=== PATIENT | male | born 1990 | race African-American/Black ===

== ENCOUNTER 2016-12-22 06:56 | Emergency (ER) | payer MEDICARE, OTHER ==
[~2016-12-22] VITALS: Ht 167.6 cm; Wt 73.9 kg
[2016-12-22 07:07] VITALS: BP 128/81
[2016-12-22] MEDS ORDERED: OFLO5DRO4 OS (07:25)
--- NOTE | 2016-12-22 07:25 | PHYS DOC ---
Past Medical History Past Medical History: Other Additional Past Medical Histor: crohn's disease Past Surgical History: No Surgical History Alcohol Use: None Drug Use: None Adult General Chief Complaint Chief Complaint: EYE PROBLEMS HPI HPI Patient is a 26 year old male presents to the emergency department with swelling to left eye that started at 0300 this morning. Patient states he had yellow drainage and discharge from the eye. Patient denies fever, chills, nausea or vomiting, denies URI symptoms. He denies the use of contact lens. He denies difficulty of vision. Review of Systems Review of Systems Constitutional: Denies fever or chills [] Eyes: Denies change in visual acuity, redness, or eye pain. C/o left eye swelling and drainage HENT: Denies nasal congestion or sore throat [] Respiratory: Denies cough or shortness of breath [] Cardiovascular: No additional information not addressed in HPI [] GI: Denies abdominal pain, nausea, vomiting, bloody stools or diarrhea [] : Denies dysuria or hematuria [] Musculoskeletal: Denies back pain or joint pain [] Integument: Denies rash or skin lesions [] Neurologic: Denies headache, focal weakness or sensory changes [] Endocrine: Denies polyuria or polydipsia [] Allergies Allergies Allergies Coded Allergies Type Severity Reaction Last Updated Verified No Known Drug Allergies 01/13/14 No Physical Exam Physical Exam Constitutional: Well developed, well nourished, no acute distress, non-toxic appearance. [] HENT: Normocephalic, atraumatic, bilateral external ears normal, oropharynx moist, no oral exudates, nose normal. Right TM normal. Unable to visualize left TM. Eyes: PERRLA, EOMI, conjunctiva normal, yellow discharge noted with swelling to upper eye lid Neck: Normal range of motion, no tenderness, supple, no stridor. [] Cardiovascular:Heart rate regular rhythm, no murmur [] Lungs & Thorax: Bilateral breath sounds clear to auscultation [] Skin: Warm, dry, no erythema, no rash. [] Back: No tenderness Extremities: No tenderness, no cyanosis, no clubbing, ROM intact, no edema. [] Neurologic: Alert and oriented X 3, normal motor function, normal sensory function, no focal deficits noted. [] Psychologic: Affect normal, judgement normal, mood normal. [] EKG EKG [] Radiology/Procedures Radiology/Procedures [] Course & Med Decision Making Course & Med Decision Making Pertinent Labs and Imaging studies reviewed. (See chart for details) Patient was instructed to use cool packs on the eye for swelling. Patient will be placed on eye drops for the drainage and discharge although this is more likely a result of stye that has opened up. Patient was provided with signs and symptoms to return to the emergency department. He agrees with discharge instructions, treatment regimen and followup recommendations. Patient will be discharged home in stable condition. [] Dragon Disclaimer Dragon Disclaimer This electronic medical record was generated, in whole or in part, using a voice recognition dictation system. Departure Departure Impression: Primary Impression: Infection of left eye Disposition: HOME, SELF-CARE Condition: STABLE Referrals: SONIDO HERNANDEZ MD (PCP) HERNESTO KELLER MD Patient Instructions: Bacterial Conjunctivitis, [id number] Additional Instructions: Activity as tolerated Medication as prescribed Cool packs to the left eye to help with inflammation Warm moist cloth should be used to help remove crusty drainage Followup with ophthalmology on Saturday Return to emergency department as needed for signs and symptoms that become worse. Scripts Ofloxacin (OFLOXACIN) 10 Ml Drops 1 DROP OS QID, #[address] into the left eye for the next 5-7 days Prov: JITENDRA MEYER APRN 12/22/16 JITENDRA MEYER APRN December 22, 2016 07:25
== END 2016-12-22 07:31 | disposition home or self-care (01) ==
LOC: ER 07:30
DX: H57.8 Other specified disorders of eye and adnexa (principal); K50.90 Crohn's disease, unspecified, without complications
CPT/HCPCS: 99283